=== PATIENT | female | born 1960 | race Caucasian/White ===

== ENCOUNTER → 2016-11-27 | Outpatient (CLI) | payer BC ==
--- NOTE | 2016-11-27 22:45 | MR ---
EXAMINATION TYPE: MR brain wo/w con DATE OF EXAM: 11/27/2016 6:40 PM COMPARISON: NONE HISTORY: Occipital neuralgia, M96.1 Postlaminectomy, upper motor neuron signs, and migraine headaches all per order. Additional symptoms of dizziness or hearing loss and abnormal reflexes per patient. TECHNIQUE: Multiplanar, multisequence images of the brain and brainstem is performed without and with IV contras t, utilizing 15 mL intravenous MultiHance . FINDINGS: Diffusion weighted images demonstrate no evidence of a recent infarct or other diffusion ab normality. There is no worrisome extra-axial fluid collection. The ventricular system and cisternal spaces are normal in size and appearance. The brain volume is age appropriate. There are some scatt ered foci of T2 hyperintensity seen throughout the white matter bilaterally. Approximately 10-15 scat tered lesions are identified. Largest is a 8 x 5 mm subcortical lesion left frontal parietal level on axial image 21, lesions are nonspecific in appearance and distribution. Midline structures demonstrate normal morphology. The craniocervical junction appears within normal limits. Post contrast images demonstrate no abnormal enhancement. The dural venous sinuses appear pa tent. The visualized sinuses are clear and the globes are intact. IMPRESSION: Mild to borderline moderate nonspecific white matter changes somewhat atypical pattern fo r product of chronic small vessel ischemic change. Other etiologies should be considered. No suspicio us enhancing lesions are evident.
== END | disposition home or self-care (01) ==
LOC: RADMRIMAIN 17:57
PROVIDERS: ATTEND Physical Medicine & Rehabilitation
DX: R90.82 White matter disease, unspecified (principal); I67.82 Cerebral ischemia
CPT/HCPCS: 70553; A9577

== ENCOUNTER → 2017-04-01 | Outpatient (CLI) | payer BC ==
--- NOTE | 2017-04-02 08:26 | MR ---
EXAMINATION TYPE: MR lumbar spine wo/w con DATE OF EXAM: 04/01/2017 COMPARISON: 09/26/2010 Contrast: 15 mL MultiHance HISTORY: Pain in Left buttock and Left Leg for approx 7 years. Lumbar surgery 2011, Nerve block 2012 TECHNIQUE: T1 and T2 axial and sagittal images of the lumbar spine are submitted. FINDINGS: There is no abnormal signal seen within the visualized spinal cord or paraspinal soft tissu es. Metallic postsurgical artifact noted at L5-S1. At L1-2 there is no disc herniation or canal stenosis. No foraminal encroachment. At L2-3 there is degenerative disc disease with right paracentral disc protrusion. Findings stable. M ild right-sided foraminal encroachment. At L3-4 there is no disc herniation or canal stenosis. No foraminal encroachment. Mild hypertrophy of the facets. At L4-5 there is central broad-based disc bulging with mild effacement of thecal sac but no canal holly nosis. Neural foramina remain patent. No focal herniation. At L5-S1 there is postsurgical change. Artifact does obscure portions of the spinal canal and neural foramina. No obvious canal stenosis. Neural foramina remains patent. IMPRESSION: 1. Postsurgical change L5-S1. 2. Stable right paracentral disc protrusion L2-L3 with mild right-sided foraminal encroachment. 3. Mild broad-based central disc bulging L4-L5 with no canal stenosis or foraminal encroachment.
== END | disposition home or self-care (01) ==
LOC: RADMRIMAIN 19:35
PROVIDERS: ATTEND Physical Medicine & Rehabilitation
DX: M51.26 Other intervertebral disc displacement, lumbar region (principal); M99.04 Segmental and somatic dysfunction of sacral region; M46.1 Sacroiliitis, not elsewhere classified; M96.1 Postlaminectomy syndrome, not elsewhere classified; Z98.890 Other specified postprocedural states
CPT/HCPCS: 72158; A9577

== ENCOUNTER → 2017-05-08 | Outpatient (CLI) | payer BC ==
--- NOTE | 2017-05-08 10:20 | ECHOF ---
Referral Reason:R07.9 chest pain MEASUREMENTS -------- HEIGHT: 165.1 cm WEIGHT: 79.4 kg BP: 147/80 RVIDd: 2.5 cm (< 3.3) IVSd: 1.1 cm (0.6 - 1.1) LVIDd: 3.8 cm (3.9 - 5.3) LVPWd: 1.0 cm (0.6 - 1.1) IVSs: 1.6 cm LVIDs: 2.4 cm LVPWs: 1.5 cm LAESV Index (A-L): 14.62 ml/m Ao Diam: 3.5 cm (2.0 - 3.7) AV Cusp: 1.6 cm (1.5 - 2.6) LA Diam: 1.9 cm (2.7 - 3.8) MV EXCURSION: 13.362 mm (> 18.000) MV EF SLOPE: 63 mm/s (70 - 150) EPSS: 0.8 cm MV E Jai: 0.97 m/s MV DecT: 289 ms MV A Jai: 0.89 m/s MV E/A Ratio: 1.10 RAP: 5.00 mmHg RVSP: 9.56 mmHg FINDINGS -------- Sinus rhythm. This was a technically adequate study. The left ventricular size is normal. Overall left ventricular systolic function is normal with, an EF between 55 - 60 %. The right ventricle is normal in size and function. Normal LA size by volume 22+/-6 ml/m2. The right atrium is normal in size. The aortic valve is trileaflet, and appears structurally normal. No aortic stenosis or regurgitation. There is no evidence of aortic regurgitation. There is no evidence of aortic stenosis. The mitral valve is normal. There is trace mitral regurgitation. Trace tricuspid regurgitation present. There is no evidence of pulmonary hypertension. The right ventricular systolic pressure, as measured by Doppler, is 9.56mmHg. Trace/mild (physiologic) pulmonic regurgitation. The aortic root size is normal. Normal inferior vena cava with normal inspiratory collapse consistent with estimated right atrial pressure of 5 mmHg. There is no pericardial effusion. CONCLUSIONS -------- 1. Sinus rhythm. 2. The aortic root size is normal. 3. There is no pericardial effusion. 4. This was a technically adequate study. 5. Overall left ventricular systolic function is normal with, an EF between 55 - 60 %. 6. Normal LA size by volume 22+/-6 ml/m2. 7. The aortic valve is trileaflet, and appears structurally normal. No aortic stenosis or regurgitation. 8. There is trace mitral regurgitation. 9. Trace tricuspid regurgitation present. 10. There is no evidence of pulmonary hypertension. 11. Trace/mild (physiologic) pulmonic regurgitation. CHEMICAL ENGINEERING INTERN: Chinedu Vyas RDCS
--- NOTE | 2017-05-08 11:36 | ECHOF ---
Referral Reason:R07.9 chest pain MEASUREMENTS -------- HEIGHT: 165.1 cm WEIGHT: 79.4 kg BP: 138/69 FINDINGS -------- Utilizing the standard José Luis protocol the patient was exercised for 8 minutes, 0 seconds, achieving a maximum heart rate of 147 , which is 89 % of predicted maximal heart rate. There was physiologic heart rate and blood pressure response to exercise. Max Heart Rate: 147 % of Max Predicted Heart Rate: 89 Rest Heart Rate: 78 Rest BP: 138/69 Max BP: 189/75 Mets Achieved: 9.7 The test was stopped because of fatigue. The test was stopped because the target heart rate was achieved. This level of exercise represents an average exercise tolerance for age. Sinus rhythm. In response to stress, the ECG showed no ST-T wave changes (see exercise report for details). In response to stress, the ECG showed no ST-T wave changes (see exercise report for details). There were normal blood pressure and heart rate responses to stress. LV size, wall thickness and systolic function are normal, with an EF of 60%. Echo images were acquired at peak stress which demonstrated appropriate augmentation of all left ventricular segments with slight decrease in cavity size. CONCLUSIONS -------- 1. The test was stopped because of fatigue. 2. This level of exercise represents an average exercise tolerance for age. 3. In response to stress, the ECG showed no ST-T wave changes (see exercise report for details). 4. No 2D echocardiographic evidence of inducible ischemia to achieved workload. PARIMUTUEL CASHIER: Chinedu Vyas RDCS
--- NOTE | 2017-05-08 12:16 | EST ---
Referral Reason:R07.9 chest pain MEASUREMENTS -------- HEIGHT: 165.1 cm WEIGHT: 79.4 kg BP: 138/69 FINDINGS -------- Utilizing the standard José Luis protocol the patient was exercised for 8 minutes, 0 seconds, achieving a maximum heart rate of 147 , which is 89 % of predicted maximal heart rate. There was physiologic heart rate and blood pressure response to exercise. Max Heart Rate: 147 % of Max Predicted Heart Rate: 89 Rest Heart Rate: 78 Rest BP: 138/69 Max BP: 189/75 Mets Achieved: 9.7 The test was stopped because of fatigue. The test was stopped because the target heart rate was achieved. This level of exercise represents an average exercise tolerance for age. Sinus rhythm. In response to stress, the ECG showed no ST-T wave changes (see exercise report for details). In response to stress, the ECG showed no ST-T wave changes (see exercise report for details). There were normal blood pressure and heart rate responses to stress. LV size, wall thickness and systolic function are normal, with an EF of 60%. Echo images were acquired at peak stress which demonstrated appropriate augmentation of all left ventricular segments with slight decrease in cavity size. CONCLUSIONS -------- 1. The test was stopped because of fatigue. 2. This level of exercise represents an average exercise tolerance for age. 3. In response to stress, the ECG showed no ST-T wave changes (see exercise report for details). 4. No 2D echocardiographic evidence of inducible ischemia to achieved workload. TELECOMMUNICATIONS NETWORK ENGINEER: Chinedu yVas RDCS Dictated By: Dale Maloney MD 05/08/17 1021 Signed By: <Electronically signed by Dale Maloney MD in OV> 05/08/17 0737 [facility]
== END | disposition home or self-care (01) ==
LOC: RADECHMAIN 08:27
PROVIDERS: ATTEND Internal Medicine
DX: I08.3 Combined rheumatic disorders of mitral, aortic and tricuspid valves (principal); R53.83 Other fatigue
CPT/HCPCS: 93017; 93306; 93350

== ENCOUNTER → 2017-07-30 | Outpatient (CLI) | payer BC ==
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
--- NOTE | 2017-07-31 09:12 | MM ---
Reason for exam: screening (asymptomatic). Last mammogram was performed 1 year and 2 months ago. History: Patient is postmenopausal. Benign left US cyst aspiration of the left breast, February 17, 2010. Benign right US cyst aspiration of the right breast, February 17, 2010. Benign left US cyst aspiration ea add of the left breast, July 04, 2007. Benign left US cyst aspiration ea add of the left breast, July 04, 2007. Benign left US cyst aspiration ea add of the left breast, July 04, 2007. Benign left US cyst aspiration of the left breast, July 04, 2007. Took hormonal contraceptives for 10 years beginning at age 19. Physical Findings: A clinical breast exam by your physician is recommended on an annual basis and results should be correlated with mammographic findings. MG Screening Mammo w CAD Bilateral CC and MLO view(s) were taken. Prior study comparison: June 13, 2016, bilateral MG diagnostic mammo w CAD O[facility]. October 10, 2015, right breast MG 3d work up w/cad RT. September 24, 2015, bilateral MG screening mammo w CAD. August 28, 2013, bilateral digital screening mammo w/CAD. The breast tissue is heterogeneously dense. This may lower the sensitivity of mammography. There is no discrete abnormality. ASSESSMENT: Negative, BI-RAD 1 RECOMMENDATION: Routine screening mammogram of both breasts in 1 year.
== END ==
LOC: WWCWWP 10:47
PROVIDERS: ATTEND Obstetrics & Gynecology
DX: Z12.31 Encounter for screening mammogram for malignant neoplasm of breast (principal)

== ENCOUNTER → 2019-10-20 | Outpatient (CLI) | payer BC ==
[2019-10-20 08:01] VITALS: BP 150/90; PULSE 72; RESP 18; TEMP 98.1
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
--- NOTE | 2019-10-20 09:25 | US ---
EXAMINATION TYPE: US transvaginal DATE OF EXAM: 10/20/2019 COMPARISON: NONE CLINICAL HISTORY: R19.09 PELVIC MASS ON EXAM. pelvic mass felt on pelvic exam today, hysterectomy 9 y ears ago, LLQ pain during TV TECHNIQUE: TV. Transvaginal sonographic images Date of LMP: 9+yrs ago EXAM MEASUREMENTS: Uterus: Surgically absent Endometrial Stripe: Surgically absent Right Ovary: 11.0 x 8.5 x 7.9cm Left Ovary: not seen 1. Uterus: Surgically absent 2. Endometrium: Surgically absent 3. Right Ovary: 10.5cm cystic lesion with internal debris 4. Left Ovary: not seen due to atrophy and bowel gas 5. Bilateral Adnexa: wnl 6. Posterior cul-de-sac: wnl Large cystic lesion with internal echoes right pelvis without thin or thickened septa or areas of sof t tissue nodularity. There is increased through transmission. No significant internal vascularity. IMPRESSION: At least 10 cm right pelvic cystic lesion could reflect endometrioma, cystic neoplasm can not be excluded. Advise gynecology oncology surgical referral and appropriate lab tumor workup. Need to further investigate and better characterized by MRI should be based on additional workup.
--- NOTE | 2019-10-20 12:19 | P.PN ---
Progress Note - Text Progress Note Date: 10/20/19 OUTPATIENT FOLLOW-UP NOTE TEST(S)/RESULTS: Pelvic ultrasound was because of a palpable pelvic mass on routine exam. Pelvic ultrasound done on 10/20/2019 shows a large cystic pelvic mass measuring 11.0 x 8.5 x 7.9 cm with internal echoes. METHOD OF NOTIFICATION: Patient was notified by phone. PATIENT COMMENTS: The patient would like to consider the option of removing the mass with a local lace burn out tender, if possible. DIAGNOSIS: Large pelvic mass which most likely represents a right ovarian cystic mass. Differential diagnosis will include endometrioma, other benign ovarian neoplasm as well as possible malignant neoplasm of the ovary. Other possibilities that are less likely include non-gynecologic mass. DISCUSSION: The patient understands that because of the large size, malignancy is a possibility. There are other features that are not as concerning including lack of solid components and smooth border. She understands that I am recommending removal of the mass surgically to determine the exact nature of the mass and to rule out malignancy. We discussed the option of referral to a gynecologic oncologist. She would also like to look into the option of having a local lace burn out tender remove the mass, if possible. PLAN: OVA 1+ blood testing to help determine the likelihood of malignancy. The order slip will be mailed to the patient and the patient will come to [facility] to have this drawn on 10/24/19, which is the soonest that she can have it drawn. She understands that she will be referred for surgical removal of the mass. If the test indicates that malignancy is likely, she will be referred to a gynecologic oncologist. If it indicates that malignancy is very unlikely, we can consider referral to a local lace burn out tender for removal.
--- NOTE | 2019-10-22 13:36 | MM ---
Reason for exam: screening (asymptomatic). Last mammogram was performed 2 years and 3 months ago. History: Patient is postmenopausal. Benign left US cyst aspiration of the left breast, February 17, 2010. Benign right US cyst aspiration of the right breast, February 17, 2010. Benign left US cyst aspiration ea add of the left breast, July 04, 2007. Benign left US cyst aspiration ea add of the left breast, July 04, 2007. Benign left US cyst aspiration ea add of the left breast, July 04, 2007. Benign left US cyst aspiration of the left breast, July 04, 2007. Took hormonal contraceptives for 10 years beginning at age 19. Physical Findings: A clinical breast exam by your physician is recommended on an annual basis and results should be correlated with mammographic findings. MG Screening Mammo w CAD Bilateral CC and MLO view(s) were taken. Prior study comparison: July 30, 2017, bilateral MG screening mammo w CAD. June 13, 2016, bilateral MG diagnostic mammo w CAD [facility]. The breast tissue is heterogeneously dense. This may lower the sensitivity of mammography. No suspicious abnormality. No significant changes when compared with prior studies. ASSESSMENT: Negative, BI-RAD 1 RECOMMENDATION: Routine screening mammogram of both breasts in 1 year.
== END | disposition home or self-care (01) ==
LOC: WWCWWP 07:44
PROVIDERS: ATTEND Obstetrics & Gynecology
DX: Z12.31 Encounter for screening mammogram for malignant neoplasm of breast (principal); N94.89 Other specified conditions associated with female genital organs and menstrual cycle
CPT/HCPCS: 76830; 77067

== ENCOUNTER → 2019-10-23 | Outpatient (CLI) | payer BC | END | disposition home or self-care (01) | LOC: LABWHC1 06:30 | PROVIDERS: ATTEND Obstetrics & Gynecology | DX: N83.201 Unspecified ovarian cyst, right side (principal) | CPT/HCPCS: 36415 ==

== ENCOUNTER → 2020-09-09 | Outpatient (CLI) | payer BC ==
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
== END | disposition home or self-care (01) ==
LOC: RADMRIMAIN 20:49
PROVIDERS: ATTEND Orthopaedic Surgery Orthopaedic Surgery of the Spine
DX: M50.222 Other cervical disc displacement at C5-C6 level (principal); M51.16 Intervertebral disc disorders with radiculopathy, lumbar region; Z98.890 Other specified postprocedural states
CPT/HCPCS: 72141; 72158

== ENCOUNTER → 2021-02-15 | Outpatient (CLI) | payer BC ==
[2021-02-15 09:24] VITALS: BP 114/76; PULSE 72; RESP 18; TEMP 98
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
--- NOTE | 2021-02-16 13:24 | MM ---
Reason for exam: screening (asymptomatic). Last mammogram was performed 1 year and 4 months ago. History: Patient is postmenopausal. Benign left US cyst aspiration of the left breast, February 17, 2010. Benign right US cyst aspiration of the right breast, February 17, 2010. Benign left US cyst aspiration ea add of the left breast, July 04, 2007. Benign left US cyst aspiration ea add of the left breast, July 04, 2007. Benign left US cyst aspiration ea add of the left breast, July 04, 2007. Benign left US cyst aspiration of the left breast, July 04, 2007. Took hormonal contraceptives for 10 years beginning at age 19. Physical Findings: A clinical breast exam by your physician is recommended on an annual basis and results should be correlated with mammographic findings. MG Screening Mammo w CAD Bilateral CC and MLO view(s) were taken. Prior study comparison: October 20, 2019, bilateral MG screening mammo w CAD. July 30, 2017, bilateral MG screening mammo w CAD. There are scattered fibroglandular densities. There are benign appearing round calcifications in the right breast. There is no discrete abnormality. ASSESSMENT: Negative, BI-RAD 1 RECOMMENDATION: Routine screening mammogram of both breasts in 1 year.
== END | disposition home or self-care (01) ==
LOC: WWCWWP 09:08
PROVIDERS: ATTEND Obstetrics & Gynecology
DX: Z01.419 Encounter for gynecological examination (general) (routine) without abnormal findings (principal); E78.5 Hyperlipidemia, unspecified; J45.909 Unspecified asthma, uncomplicated; Z87.891 Personal history of nicotine dependence; Z90.710 Acquired absence of both cervix and uterus; Z90.722 Acquired absence of ovaries, bilateral; Z12.31 Encounter for screening mammogram for malignant neoplasm of breast
CPT/HCPCS: 77067

== ENCOUNTER → 2022-02-14 | Outpatient (CLI) | payer BC ==
--- NOTE | 2022-02-14 11:14 | US ---
EXAMINATION TYPE: US venous doppler duplex LE LT DATE OF EXAM: 02/14/2022 10:45 AM COMPARISON: NONE CLINICAL HISTORY: M79.605 PAIN LEFT LEG. Left leg swelling per patient. No redness. Not on blood thi nners. No hx blood clot. No injury. SIDE PERFORMED: Left TECHNIQUE: The lower extremity deep venous system is examined utilizing real time linear array sonog calvin with graded compression, doppler sonography and color-flow sonography. VESSELS IMAGED: Common Femoral Vein Deep Femoral Vein Greater Saphenous Vein * Femoral Vein Popliteal Vein Small Saphenous Vein * Proximal Calf Veins (* superficial vessels) Left Leg: Negative for DVT Grayscale, color doppler, spectral doppler imaging performed of the deep veins of the left lower extr emity. There is normal flow, compressibility, vascular waveforms. IMPRESSION: No ultrasound evidence for acute DVT in the left lower extremity.
== END | disposition home or self-care (01) ==
LOC: RADUSWWP 10:18
PROVIDERS: ATTEND Family Medicine
DX: M79.605 Pain in left leg (principal)

== ENCOUNTER → 2022-03-27 | Outpatient (CLI) | payer BC ==
[2022-03-27 11:35] VITALS: BP 127/82; PULSE 71; RESP 17; TEMP 98.2
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
--- NOTE | 2022-03-29 17:17 | MM ---
Reason for Exam: Screening (asymptomatic). Last mammogram was performed 1 year(s) and 2 month(s) ago. Patient History: Menarche at age 17. First Full-Term at age 28. Hysterectomy at age 45. Postmenopausal. Hormonal Contraceptives for 10 years from age 19 until age 29. 02/17/2010, Benign Cyst Aspiration on the right side. 02/17/2010, Benign Cyst Aspiration on the left side. 07/04/2007, Benign Cyst Aspiration on the left side. 07/04/2007, Benign Cyst Aspiration on the left side. 07/04/2007, Benign Cyst Aspiration on the left side. 07/04/2007, Benign Cyst Aspiration on the left side. Risk Values: Veena 5 year model risk: 1.5%. NCI Lifetime model risk: 7.4%. Prior Study Comparison: 07/30/2017 Bilateral Screening Mammogram, [facility]. 10/20/2019 Bilateral Screening Mammogram, [facility]. 02/15/2021 Bilateral Screening Mammogram, [facility]. Tissue Density: The breast tissue is heterogeneously dense. This may lower the sensitivity of mammography. Findings: Analyzed By CAD. There is no suspicious group of microcalcifications or new suspicious mass in either breast. Overall Assessment: Benign, BI-RAD 2 Management: Screening Mammogram of both breasts in 1 year. A clinical breast exam by your physician is recommended on an annual basis and results should be correlated with mammographic findings. Electronically signed and approved by: Tyler Brito D.O. Radiologis
== END | disposition home or self-care (01) ==
LOC: RADMAMWWP 10:42
PROVIDERS: ATTEND Obstetrics & Gynecology
DX: Z12.31 Encounter for screening mammogram for malignant neoplasm of breast (principal); Z78.0 Asymptomatic menopausal state
CPT/HCPCS: 77067

== ENCOUNTER → 2022-04-24 | Outpatient (CLI) | payer BC ==
--- NOTE | 2022-04-24 08:48 | US ---
EXAMINATION TYPE: US pelvic limited DATE OF EXAM: 04/24/2022 COMPARISON: NONE CLINICAL HISTORY: 61-year-old female R10.31 RLQ PAIN, R10.2 PELVIC AND PERINEAL PAIN. Pelvic pain. Hy sterectomy and oophorectomy. TECHNIQUE: Transabdominal sonographic images of the pelvis were acquired. Date of LMP: Unknown EXAM MEASUREMENTS: Uterus: Surgically absent cm Endometrial Stripe: Surgically absent cm Right Ovary: Surgically absent cm Left Ovary: Surgically absent cm 1. Uterus: Surgically absent 2. Endometrium: Surgically absent 3. Right Ovary: Surgically absent 4. Left Ovary: Surgically absent 5. Bilateral Adnexa: wnl 6. Posterior cul-de-sac: wnl Clinical Laboratory Manager notes: No obvious pathology noted. IMPRESSION: Status post hysterectomy and bilateral salpingo-oophorectomies. No discrete abnormality seen on trans abdominal scanning of the pelvis.
== END | disposition home or self-care (01) ==
LOC: RADUSWWP 07:28
PROVIDERS: ATTEND Obstetrics & Gynecology
DX: R10.2 Pelvic and perineal pain (principal); R10.31 Right lower quadrant pain; Z90.710 Acquired absence of both cervix and uterus
CPT/HCPCS: 76857

== ENCOUNTER → 2023-09-03 | Outpatient (CLI) | payer BC ==
[2023-09-03 11:02] VITALS: BP 141/75; PULSE 90; RESP 16; TEMP 98.2
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
--- NOTE | 2023-09-04 20:04 | MM ---
Reason for Exam: Screening (asymptomatic). Last mammogram was performed 1 year(s) and 5 month(s) ago. Patient History: Menarche at age 17. First Full-Term at age 28. Hysterectomy at age 45. Postmenopausal. Hormonal Contraceptives for 10 years from age 19 until age 29. 02/17/2010, Benign Cyst Aspiration on the right side. 02/17/2010, Benign Cyst Aspiration on the left side. 07/04/2007, Benign Cyst Aspiration on the left side. 07/04/2007, Benign Cyst Aspiration on the left side. 07/04/2007, Benign Cyst Aspiration on the left side. 07/04/2007, Benign Cyst Aspiration on the left side. Risk Values: Veena 5 year model risk: 1.5%. NCI Lifetime model risk: 7.2%. Prior Study Comparison: 10/20/2019 Bilateral Screening Mammogram, [facility]. 02/15/2021 Bilateral Screening Mammogram, [facility]. 03/27/2022 Bilateral MG screening mammo w CAD, [facility]. Tissue Density: There are scattered fibroglandular densities. Findings: Analyzed By CAD. Areas of bilateral asymmetric densities remain unchanged. There is no suspicious group of microcalcifications or new suspicious mass in either breast. Overall Assessment: Benign, BI-RAD 2 Management: Screening Mammogram of both breasts in 1 year. . Patient should continue monthly self-breast exams. A clinical breast exam by your physician is recommended on an annual basis. This exam should not preclude additional follow-up of suspicious palpable abnormalities. Note on Veena scores and lifetime risk: 1. A Veena score greater than 3% is considered moderate risk. If this is the case, consider specialist referral to assess eligibility for a risk reducing agent. 2. If overall lifetime risk for the development of breast cancer is 20% or higher, the patient may qualify for future screening with alternating mammogram and breast MRI. Electronically signed and approved by: Bashir Isaac M.D. Radiologist
== END ==
LOC: WWCWWP 10:34
PROVIDERS: ATTEND Obstetrics & Gynecology
DX: Z12.31 Encounter for screening mammogram for malignant neoplasm of breast (principal); E78.5 Hyperlipidemia, unspecified; J45.909 Unspecified asthma, uncomplicated; K21.9 Gastro-esophageal reflux disease without esophagitis; R10.31 Right lower quadrant pain; Z78.0 Asymptomatic menopausal state; Z86.018 Personal history of other benign neoplasm; Z90.722 Acquired absence of ovaries, bilateral; Z90.710 Acquired absence of both cervix and uterus; Z87.891 Personal history of nicotine dependence; Z79.899 Other long term (current) drug therapy; Z88.0 Allergy status to penicillin
CPT/HCPCS: 77063; 77067

== ENCOUNTER → 2024-10-27 | Outpatient (CLI) | payer BC ==
[2024-10-27 09:31] VITALS: BP 118/70; PULSE 92; RESP 17; TEMP 97.8
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
--- NOTE | 2024-10-27 10:45 | MM ---
Reason for Exam: Screening (asymptomatic). Last mammogram was performed 1 year(s) and 2 month(s) ago. Patient History: Menarche at age 17. First Full-Term at age 28. Hysterectomy at age 45. Postmenopausal. Hormonal Contraceptives for 10 years from age 19 until age 29. 02/17/2010, Benign Cyst Aspiration on the right side. 02/17/2010, Benign Cyst Aspiration on the left side. 07/04/2007, Benign Cyst Aspiration on the left side. 07/04/2007, Benign Cyst Aspiration on the left side. 07/04/2007, Benign Cyst Aspiration on the left side. 07/04/2007, Benign Cyst Aspiration on the left side. Risk Values: Veena 5 year model risk: 1.5%. NCI Lifetime model risk: 7.0%. Prior Study Comparison: 02/15/2021 Bilateral Screening Mammogram, [facility]. 03/27/2022 Bilateral MG screening mammo w CAD, [facility]. 09/03/2023 Bilateral MG 3D screening mammo w/cad, [facility]. Tissue Density: There are scattered areas of fibroglandular density. Findings: Analyzed By CAD. Right breast: There is no suspicious group of microcalcifications or new suspicious mass. Left breast: There is no suspicious group of microcalcifications or new suspicious mass. Overall Assessment: Negative, BI-RAD 1 Management: Screening Mammogram of both breasts in [address] [facility] will attempt to contact patient to return for supplemental views and ultrasound if indicated. Patient should continue monthly self-breast exams. A clinical breast exam by your physician is recommended on an annual basis. This exam should not preclude additional follow-up of suspicious palpable abnormalities. Note on Veena scores and lifetime risk: 1. A Veena score greater than 3% is considered moderate risk. If this is the case, consider specialist referral to assess eligibility for a risk reducing agent. 2. If overall lifetime risk for the development of breast cancer is 20% or higher, the patient may qualify for future screening with alternating mammogram and breast MRI. [facility], , 10/27/2024 10:43 AM. Electronically signed and approved by: Hugo Camp DO
== END ==
LOC: WWCWWP 09:09
PROVIDERS: ATTEND Obstetrics & Gynecology
DX: N73.6 Female pelvic peritoneal adhesions (postinfective) (principal); Z48.816 Encounter for surgical aftercare following surgery on the genitourinary system; Z90.710 Acquired absence of both cervix and uterus; Z12.31 Encounter for screening mammogram for malignant neoplasm of breast; Z04.9 Encounter for examination and observation for unspecified reason
CPT/HCPCS: 77063; 77067

== ENCOUNTER 2024-11-04 11:07 | Day surgery (SDC) | payer BC ==
[~2024-11-04 11:07] MED LIST: LACTATED RINGERS 1,000 ML IV SCH; LIDOCAINE 1% (10MG/ML) FOR IV START INTRADERMA PRN; ONDANSETRON 4 MG/2 ML VIAL IVP PRN
[2024-11-04] MEDS: IV FLUID CONTINUATION 500 ML IV ONE (12:07)
[2024-11-04 12:14] VITALS: TEMP 97.3
[2024-11-04] MEDS ORDERED: LIDOCAINE 1% INJ 10MG/ML (20 ML MDV) ONE (12:54)
[2024-11-04] MEDS ORDERED: PROPOFOL 10 MG/ML 20 ML VIAL IV ONE (12:54)
--- NOTE | 2024-11-04 13:18 | P.PCN ---
Date of Procedure: 11/04/24 Procedure(s) Performed: BRIEF HISTORY: Patient is a 63-year-old pleasant white female scheduled for an elective colonoscopy as a part of screening for colon cancer. PROCEDURE PERFORMED: Colonoscopy with biopsy. PREOPERATIVE DIAGNOSIS: Screening for colon cancer. IV sedation per Anesthesia. PROCEDURE: After informed consent was obtained, the patient, was brought into the endoscopy unit. IV sedation was administered by Anesthesia under continuous monitoring. Digital rectal examination was normal. Initially the Olympus CF-160 flexible video colonoscope was then inserted in the rectum, gradually advanced into the cecum without any difficulty. Careful examination was performed as the scope was gradually being withdrawn. Ileocecal valve and the appendiceal orifice were visualized and appeared normal. Prep was excellent. Mucosa of the cecum, ascending colon, normal. In the hepatic lecture there was a millimeter polyp that was removed by cold biopsy. Rest of the transverse colon, descending colon, sigmoid colon, and rectum appeared normal. The rectum there was a 3 mm polyp that was removed by cold biopsy. Retroflexion was performed in the rectum and no lesions were seen. The patient tolerated the procedure well. IMPRESSION: 4 mm hepatic flexure polyp status post cold biopsy 3 mm rectal polyp status post cold biopsy Rest of the colon appeared normal RECOMMENDATIONS: Findings of this examination were discussed with the patient as well as her family. She was advised to follow with the biopsy results. If the biopsy was adenoma she can have repeat colonoscopy in 5 years.
[2024-11-04 13:39] VITALS: BP 136/70; PULSE 68; RESP 15
== END 2024-11-04 14:00 | disposition home or self-care (01) ==
LOC: ORWHC2ENDO 11:07
PROVIDERS: ATTEND Internal Medicine Gastroenterology
DX: Z12.11 Encounter for screening for malignant neoplasm of colon (principal); K62.1 Rectal polyp; K63.5 Polyp of colon; E78.5 Hyperlipidemia, unspecified; J45.909 Unspecified asthma, uncomplicated; K21.9 Gastro-esophageal reflux disease without esophagitis; F17.210 Nicotine dependence, cigarettes, uncomplicated; Z79.899 Other long term (current) drug therapy; Z90.710 Acquired absence of both cervix and uterus; Z88.0 Allergy status to penicillin
CPT/HCPCS: 88305; 45380; J2003; J2704